=== PATIENT | male | born 2000 | race Caucasian/White ===

== ENCOUNTER 2025-06-01 18:28 | Emergency (ER) | payer MEDICAID ==
[~2025-06-01] VITALS: Ht 172.7 cm; Wt 95.0 kg
[2025-06-01 18:31] VITALS: O2SAT 98
[2025-06-01 18:54] VITALS: BP 111/77; PULSE 89; RESP 16; TEMP 36.9; O2SAT 100
== END 2025-06-01 19:23 | disposition home or self-care (01) ==
LOC: ER 18:28
DX: S61.216D Laceration without foreign body of right little finger without damage to nail, subsequent encounter (principal); X58.XXXD Exposure to other specified factors, subsequent encounter
CPT/HCPCS: 99281